=== PATIENT | female | born 1950 | race Caucasian/White ===

== ENCOUNTER → 2017-11-27 | Outpatient (CLI) | payer MEDICARE, OTHER ==
[~2017-11-27] MED LIST: ALLOPURINOL; AMLO5TAB2 PO; ASPI-587 PO; AZTH250C PO; B COMPLEX; BESYLATE PO; ENAL20TA PO; GLMP4T PO; GLUC-174 PO; HCT25T PO; IBP200T; INSU100I16 SQ; INSU100V5 SQ; LEVO500T2 PO; METF-380 PO; METO-354 PO; MULT1TAB63 PO; NAPR500T4 PO; OMEP-10 PO; OMG1KC PO; OSTEOBIFLEX; PANT20TA2 PO; SIMV20TA3 PO; TRAM-42 PO; TRM50T PO; enalapril PO
[2017-11-27 09:19] LABS: BASOPHILS # (AUTO) 0.1 10^3/uL (0.0-0.1); BASOPHILS % (AUTO) 1 % (0-10); EOSINOPHILS # (AUTO) 0.2 10^3/uL (0.0-0.3); EOSINOPHILS % (AUTO) 2 % (0-10); HEMATOCRIT 38 % (35-52); HEMOGLOBIN 12.5 G/DL (11.5-16.0); LYMPHOCYTES # (AUTO) 1.9 X 10^3 (1.0-4.0); LYMPHOCYTES % (AUTO) 29 % (12-44); MEAN CORPUSCULAR HEMOGLOBIN 31 PG (25-34); MEAN CORPUSCULAR HGB CONC 33 G/DL (32-36); MEAN CORPUSCULAR VOLUME 93 FL (80-99); MEAN PLATELET VOLUME 10.2 FL (7.4-10.4); MONOCYTES # (AUTO) 0.4 X 10^3 (0.0-1.0); MONOCYTES % (AUTO) 6 % (0-12); NEUTROPHILS # (AUTO) 3.9 X 10^3 (1.8-7.8); NEUTROPHILS % (AUTO) 61 % (42-75); PLATELET COUNT 182 10^3/uL (130-400); RED BLOOD COUNT 4.09 10^6/uL (4.35-5.85); RED CELL DISTRIBUTION WIDTH 12.8 % (10.0-14.5); WHITE BLOOD COUNT 6.3 10^3/uL (4.3-11.0)
[2017-11-27 09:37] LABS: ALANINE AMINOTRANSFERASE 43 U/L (0-55); ALBUMIN 4.2 GM/DL (3.2-4.5); ALKALINE PHOSPHATASE 56 U/L (40-136); BILIRUBIN,TOTAL 0.4 MG/DL (0.1-1.0); BUN/CREATININE RATIO 20; CALCIUM 9.9 MG/DL (8.5-10.1); CARBON DIOXIDE 23 MMOL/L (21-32); CHLORIDE 105 MMOL/L (98-107); CHOLESTEROL 137 MG/DL (< 200); CREATININE SERUM 0.89 MG/DL (0.60-1.30); GFR ESTIMATED > 60; GLUCOSE 126 MG/DL (70-105); HDL CHOLESTEROL 51 MG/DL (40-60); POTASSIUM 4.1 MMOL/L (3.6-5.0); SODIUM 141 MMOL/L (135-145); TOTAL PROTEIN 7.9 GM/DL (6.4-8.2); TRIGLYCERIDES 172 MG/DL (<150); VLDL CHOLESTEROL 34 MG/DL (5-40)
== END ==
LOC: LAB 09:03
PROVIDERS: ATTEND Nurse Practitioner Family
DX: I10 Essential (primary) hypertension (principal); E10.9 Type 1 diabetes mellitus without complications; R53.83 Other fatigue
CPT/HCPCS: 36415; 80053; 80061; 83036; 85025

== ENCOUNTER → 2019-06-14 | Outpatient (CLI) | payer MEDICARE, OTHER ==
[~2019-06-14] MED LIST changes: +NAPR-915 PO; -NAPR500T4 PO
[2019-06-14 12:55] LABS: BASOPHILS # (AUTO) 0.1 10^3/uL (0.0-0.1); BASOPHILS % (AUTO) 1 % (0-10); EOSINOPHILS # (AUTO) 0.1 10^3/uL (0.0-0.3); EOSINOPHILS % (AUTO) 1 % (0-10); HEMATOCRIT 40 % (35-52); HEMOGLOBIN 13.2 G/DL (11.5-16.0); LYMPHOCYTES # (AUTO) 1.8 X 10^3 (1.0-4.0); LYMPHOCYTES % (AUTO) 18 % (12-44); MEAN CORPUSCULAR HEMOGLOBIN 30 PG (25-34); MEAN CORPUSCULAR HGB CONC 33 G/DL (32-36); MEAN CORPUSCULAR VOLUME 91 FL (80-99); MONOCYTES # (AUTO) 0.5 X 10^3 (0.0-1.0); MONOCYTES % (AUTO) 4 % (0-12); NEUTROPHILS # (AUTO) 7.8 X 10^3 (1.8-7.8); NEUTROPHILS % (AUTO) 77 % (42-75); PLATELET COUNT 248 10^3/uL (130-400); RED CELL DISTRIBUTION WIDTH 13.4 % (10.0-14.5); WHITE BLOOD COUNT 10.1 10^3/uL (4.3-11.0)
== END ==
LOC: LAB 12:34
PROVIDERS: ATTEND Family Medicine
DX: E03.8 Other specified hypothyroidism (principal); I10 Essential (primary) hypertension; E78.2 Mixed hyperlipidemia; E11.649 Type 2 diabetes mellitus with hypoglycemia without coma
CPT/HCPCS: 36415; 80061; 83036; 84443; 85025

== ENCOUNTER → 2019-06-16 | Outpatient (CLI) | payer MEDICARE, OTHER ==
--- NOTE | 2019-06-16 17:43 | Diagnostic Imaging Report ---
INDICATION: Right thyroidectomy in 2011. FINDINGS: Right thyroid is surgically absent. Left thyroid measures 4.2 x 1.7 x 2.1 cm. Isthmus is 4 mm in thickness. Several hypoechoic nodules in the left lobe are identified, all 4-5 mm in size. No dominant mass is seen. IMPRESSION: 1. Status post right thyroidectomy. There are several tiny benign subcentimeter nodules in the left lobe. No dominant mass is detected. Dictated by: Dictated on workstation # [id number]
== END ==
LOC: RAD 13:58
PROVIDERS: ATTEND Family Medicine
DX: E89.0 Postprocedural hypothyroidism (principal)
CPT/HCPCS: 76536

== ENCOUNTER → 2019-06-25 | Outpatient (CLI) | payer MEDICARE, OTHER ==
[2019-06-25 10:07] LABS: ALBUMIN 4.4 GM/DL (3.2-4.5); BILIRUBIN,TOTAL 0.4 MG/DL (0.1-1.0); CALCIUM 9.7 MG/DL (8.5-10.1); CREATININE SERUM 0.99 MG/DL (0.60-1.30); POTASSIUM 4.3 MMOL/L (3.6-5.0); TOTAL PROTEIN 8.1 GM/DL (6.4-8.2)
== END ==
LOC: LAB 09:29
PROVIDERS: ATTEND Family Medicine
DX: I10 Essential (primary) hypertension (principal)
CPT/HCPCS: 36415; 80053

== ENCOUNTER → 2019-12-10 | Outpatient (CLI) | payer MEDICARE, OTHER ==
[~2019-12-10] MED LIST changes: +AMLO10TA7 PO; +ASPI81TA16 PO; +GLIM4TAB3 PO; +GLUC-200 PO; +HYDR25TA4 PO; +INSU100I29 SQ; +METF-399 PO; +MULT-985 PO; +MV-M1TAB57 PO; +PANT40TA3 PO; +POTA99TA21 PO; +SIMV20TA26 PO; +VIT1CAPS44 PO
--- NOTE | 2019-12-10 16:07 | Diagnostic Imaging Report ---
PROCEDURE: CT abdomen and pelvis without contrast. TECHNIQUE: Multiple contiguous axial images were obtained through the abdomen and pelvis without the use of intravenous contrast. Auto Exposure Controls were utilized during the CT exam to meet ALARA standards for radiation dose reduction. INDICATION: Abdominal pain. COMPARISON: Study compared with CT abdomen and pelvis 09/16/2015. FINDINGS: There is no bowel obstruction. No ascites, abscess, hematoma, or acute fluid collection. No abdominal wall defect or hernia. Unopacified liver, bile ducts, spleen and pancreas nonfocal and nonacute. Circumscribed well-defined left adrenal mass measured 4.4 x 3.1 cm unchanged from prior with its density and stability remaining consistent with benign adenoma. The right adrenal is stable and negative. The urinary tract is unobstructed, nonfocal and nonacute. There is no appendicitis or diverticulitis. No ascites, abscess, hematoma, fluid collection, pneumatosis or free gas. No focal inflammatory process. No acute-appearing abnormality. IMPRESSION: Stable chronic benign-appearing left adrenal nodule. No obstructive features, inflammatory process, or acute abnormalities identified. Dictated by: Dictated on workstation # [id number]
== END ==
LOC: RAD 14:58
PROVIDERS: ATTEND Nurse Practitioner Family
DX: E27.9 Disorder of adrenal gland, unspecified (principal)
CPT/HCPCS: 74176

== ENCOUNTER 2019-12-14 10:07 | Outpatient (CLI) | payer MEDICARE, OTHER ==
[~2019-12-14] VITALS: Ht 172.7 cm; Wt 122.7 kg
[~2019-12-14 10:07] MED LIST changes: -AMLO10TA7 PO; -ASPI81TA16 PO; -GLIM4TAB3 PO; -GLUC-200 PO; -HYDR25TA4 PO; -INSU100I29 SQ; -METF-399 PO; -MULT-985 PO; -MV-M1TAB57 PO; -PANT40TA3 PO; -POTA99TA21 PO; -SIMV20TA26 PO; -VIT1CAPS44 PO
[2019-12-14] MEDS ORDERED: PANT40TA3 PO (10:43)
[2019-12-14] MEDS ORDERED: OMG1KC PO (10:43)
[2019-12-14] MEDS ORDERED: AMLO10TA7 PO (10:43)
[2019-12-14] MEDS ORDERED: POTA99TA21 PO (10:43)
[2019-12-14] MEDS ORDERED: GLIM4TAB3 PO (10:43)
[2019-12-14] MEDS ORDERED: SIMV20TA26 PO (10:43)
[2019-12-14] MEDS ORDERED: METF-399 PO (10:43)
[2019-12-14] MEDS ORDERED: INSU100I29 SQ (10:43)
[2019-12-14] MEDS ORDERED: ASPI81TA16 PO (10:43)
[2019-12-14] MEDS ORDERED: GLUC-200 PO (10:43)
[2019-12-14] MEDS ORDERED: ENAL20TA PO (10:43)
[2019-12-14] MEDS ORDERED: VIT1CAPS44 PO (10:43)
[2019-12-14] MEDS ORDERED: HYDR25TA4 PO (10:43)
[2019-12-14] MEDS ORDERED: MULT-985 PO (10:43)
[2019-12-14] MEDS ORDERED: MV-M1TAB57 PO (10:43)
== END 2019-12-14 10:46 | disposition home or self-care (01) ==
LOC: PREOP 10:07
PROVIDERS: ATTEND Surgery
DX: Z01.818 Encounter for other preprocedural examination (principal)

== ENCOUNTER → 2021-02-16 | Outpatient (CLI) | payer MEDICARE, OTHER ==
[~2021-02-16] MED LIST changes: +AMLO-251 PO; +ASPI81TA16 PO; +ENAL20TA16 PO; +GLIM4TAB5 PO; +GLUC-200 PO; +HYDR25TA4 PO; +INSU100I29 SQ; +METF-399 PO; +MULT-985 PO; +MV-M1TAB57 PO; +PANT40TA52 PO; +POTA99TA21 PO; +SIMV20TA26 PO; +VIT1CAPS44 PO
--- NOTE | 2021-02-16 15:49 | Diagnostic Imaging Report ---
INDICATION: Routine screening. COMPARISON is made with prior mammograms dated 02/03/2015 and 06/23/2007. 2-D and 3-D bilateral screening mammography was performed with CAD. Both breasts are primarily involutional. There are benign calcifications in both breasts. No spiculated mass or malignant appearing microcalcifications are seen. Axillae are unremarkable. IMPRESSION: BI-RADS Category 2 No mammographic features suspicious for malignancy are identified. ACR BI-RADS Category 2: Benign findings. Result letter will be mailed to the patient. Note: At least 10% of breast cancer is not imaged by mammography. Dictated by: Dictated on workstation # [id number]
== END ==
LOC: RAD 14:42
PROVIDERS: ATTEND Nurse Practitioner Family
DX: Z12.31 Encounter for screening mammogram for malignant neoplasm of breast (principal)
CPT/HCPCS: 77063; 77067

== ENCOUNTER → 2022-02-18 | Outpatient (CLI) | payer MEDICARE ==
[~2022-02-18] MED LIST changes: +MULT-1054 PO; -MULT-985 PO; -POTA99TA21 PO; +POTA99TA26 PO
--- NOTE | 2022-02-18 12:54 | Diagnostic Imaging Report ---
INDICATION: Routine screening. COMPARISON: 02/16/2021 and 02/03/2015. TECHNIQUE: 2D and 3D bilateral screening mammography was performed with CAD. FINDINGS: Both breasts are primarily involutional. No dominant mass or malignant-appearing microcalcifications are seen. There are benign calcifications bilaterally. The axillae are unremarkable. IMPRESSION: No mammographic features suspicious for malignancy are identified. ACR BI-RADS Category 2: Benign findings. Result letter will be mailed to the patient. Note: At least 10% of breast cancer is not imaged by mammography. Dictated by: Dictated on workstation # [id number]
== END ==
LOC: RAD 10:30
PROVIDERS: ATTEND Nurse Practitioner Family
DX: Z12.31 Encounter for screening mammogram for malignant neoplasm of breast (principal)
CPT/HCPCS: 77063; 77067

== ENCOUNTER 2022-06-26 10:23 | Outpatient (RCR) | payer MEDICARE | END 2022-06-27 01:00 | disposition home or self-care (01) | PROVIDERS: ATTEND Family Medicine | DX: M25.511 Pain in right shoulder (principal); M25.512 Pain in left shoulder ==

== ENCOUNTER 2022-07-25 10:25 | Outpatient (RCR) | payer MEDICARE | END 2022-07-25 11:11 | disposition home or self-care (01) | PROVIDERS: ATTEND Family Medicine | DX: M25.511 Pain in right shoulder (principal); M25.512 Pain in left shoulder ==

== ENCOUNTER → 2023-02-27 | Outpatient (CLI) | payer MEDICARE ==
[~2023-02-27] MED LIST changes: -INSU100I29 SQ; +INSU100I30 SQ
--- NOTE | 2023-02-27 13:15 | Diagnostic Imaging Report ---
Indication: Routine screening. Comparison is made with prior mammogram 02/18/2022 and 02/16/2021. 2-D and 3-D bilateral screening mammography was performed with CAD. CAD is utilized. The current study was also evaluated with a Computer Aided Detection (CAD) system. Scattered fibroglandular densities are identified bilaterally. There are benign calcifications in both breasts. No mass or malignant-appearing microcalcifications are identified. Axillae are unremarkable. IMPRESSION: BI-RADS Category 2 No mammographic features suspicious for malignancy are identified. ACR BI-RADS Category 2: Benign findings. Result letter will be mailed to the patient. Note: At least 10% of breast cancer is not imaged by mammography. Dictated by: Dictated on workstation # [id number]
== END ==
LOC: RAD 09:57
PROVIDERS: ATTEND Family Medicine
DX: Z12.31 Encounter for screening mammogram for malignant neoplasm of breast (principal)
CPT/HCPCS: 77063; 77067

== ENCOUNTER → 2023-03-04 | Outpatient (CLI) | payer MEDICARE ==
[~2023-03-04] MED LIST changes: +CHOL10007 PO; +ENAL-70 PO; -ENAL20TA16 PO; +GLUC-219 PO; +LEVO75CA5 PO; +METO50TA7 PO; +ROSU10TA28 PO; +UBID100C7 PO
--- NOTE | 2023-03-04 17:46 | Diagnostic Imaging Report ---
INDICATION: Osteopenia COMPARISON: None available FINDINGS: AP Spine L1-L4: [BMD (g/cm2): 1.268] [T-Score: 0.6] [Z-Score: 1.1] [BMD Previous: NA] [BMD % Change: NA] LT Hip Neck: [BMD (g/cm2): 0.716] [T-Score: -2.3] [Z-Score: -1.2] LT Hip Total: [BMD (g/cm2):0.843] [T-Score:-1.3] [Z-Score: -0.4] [BMD Previous: NA] [BMD % Change: NA] RT Hip Neck: [BMD (g/cm2):0.719] [T-Score:-2.3] [Z-Score:-1.2] RT Hip Total: [BMD (g/cm2):0.854] [T-score:-1.2] [Z-Score:-0.3] [BMD Previous:NA] [BMD % Change:NA] *Indicates significant change from prior examination based on 95% confidence level. World Health Organization criteria for BMD interpretation classify patients as Normal (T-score at or above -1.0), Osteopenic (T-score between -1.0 and -2.5) or Osteoporotic (T-score at or below -2.5). LIMITATIONS AND MODIFICATION: None. FRACTURE RISK (FRAX SCORE): The ten year probability of (%): Major Osteoporotic Fracture: [13.1] Hip Fracture: [3.5] IMPRESSION: 1. Osteopenia (Low bone mass). 2. Baseline examination. 3. See below National Osteoporosis Foundation guidelines on when to potentially initiate pharmacologic therapy. Based on the National Osteoporosis Foundation Guidelines, pharmacologic treatment should be initiated in any of the following, unless clinical conditions suggest otherwise: * Any patient with prior fragility fracture of the hip or vertebrae. A spine fracture indicates 5X risk for subsequent spine fracture and 2X risk for subsequent hip fracture. * Osteoporosis (T-score <-2.5). * Postmenopausal women and men age 50 and older with low bone mass/osteopenia (T-score between -1.0 and -2.5) by DXA and 10-year major osteoporotic fracture greater than 20% or a 10-year probability of hip fracture greater than 3%. These fracture risks are supplied above in the FRAX score, if applicable. * Clinician judgement and/or patient preferences may indicate treatment for people with 10-year fracture probabilities above or below these levels. Dictated by: Dictated on workstation # [id number]
== END ==
LOC: RAD 13:32
PROVIDERS: ATTEND Family Medicine
DX: Z12.31 Encounter for screening mammogram for malignant neoplasm of breast (principal); M85.80 Other specified disorders of bone density and structure, unspecified site; Z78.0 Asymptomatic menopausal state
CPT/HCPCS: 77080

== ENCOUNTER 2023-03-05 09:28 | Outpatient (CLI) | payer MEDICARE ==
[~2023-03-05] VITALS: Ht 172.7 cm; Wt 125.5 kg
[~2023-03-05 09:28] MED LIST changes: -CHOL10007 PO; -GLUC-219 PO; -LEVO75CA5 PO; -METO50TA7 PO; -ROSU10TA28 PO; -UBID100C7 PO
[2023-03-05] MEDS ORDERED: CHOL10007 PO (10:35)
[2023-03-05] MEDS ORDERED: GLUC-219 PO (10:35)
[2023-03-05] MEDS ORDERED: UBID100C7 PO (10:35)
[2023-03-05] MEDS ORDERED: LEVO75CA5 PO (10:35)
[2023-03-05] MEDS ORDERED: METO50TA7 PO (10:35)
[2023-03-05] MEDS ORDERED: ROSU10TA28 PO (10:35)
== END 2023-03-05 11:02 | disposition home or self-care (01) ==
LOC: PREOP 09:28
PROVIDERS: ATTEND Otolaryngology Otolaryngology/Facial Plastic Surgery
DX: Z01.818 Encounter for other preprocedural examination (principal)

== ENCOUNTER 2023-03-07 05:54 | Day surgery (SDC) | payer MEDICARE ==
[2023-03-07] VITALS (8 sets, daily range): BP systolic 140–166; BP diastolic 51–85
[~2023-03-07] VITALS: Ht 172.7 cm; Wt 125.5 kg
[~2023-03-07 05:54] MED LIST changes: +CHOL10007 PO; +GLUC-219 PO; +LEVO75CA5 PO; +METO50TA7 PO; +ROSU10TA28 PO; +UBID100C7 PO
[2023-03-07] MEDS: LACTATED RINGERS 1,000 ML IV PRN ×2 (06:27→08:23)
--- NOTE | 2023-03-07 06:49 | Progress Note-Post Operative ---
Post-Operative Progess Note Surgeon (s)/Blacksmith Assistant (s) Surgeon BETSY GARCIA MD Blacksmith Assistant n/a Pre-Operative Diagnosis Right Tonsil Cyst Post-Operative Diagnosis same Post-Op Procedure Note Date of Procedure: March 07, 2023 Name of Procedure Performed: Excision of Right Tonsil Cyst Description & Findings Description and Findings: n/a Anesthesia Type get Estimated Blood Loss minimal Packing none. Specimen(s) collected/removed Right Tonsil Cyst to patholgoy BETSY GARCIA MD March 07, 2023 06:49
--- NOTE | 2023-03-07 06:49 | Progress Note-Pre Operative ---
Pre-Operative Progress Note Date of Available H&P: March 07, 2023 Date H&P Reviewed: March 07, 2023 Time H&P Reviewed: 06:30 History & Physical: H&P Reviewed, Patient Examed, No changes noted Changes from last HP none Pre-Operative Diagnosis: Right Tonsil Cyst BETSY GARCIA MD March 07, 2023 06:49
[2023-03-07 06:55] LABS: BASOPHILS # (AUTO) 0.1 10^3/uL (0.0-0.1); BASOPHILS % (AUTO) 1 % (0-10); EOSINOPHILS # (AUTO) 0.1 10^3/uL (0.0-0.3); EOSINOPHILS % (AUTO) 1 % (0-10); HEMATOCRIT 37 % (35-52); LYMPHOCYTES # (AUTO) 1.7 10^3/uL (1.0-4.0); LYMPHOCYTES % (AUTO) 20 % (12-44); MEAN CORPUSCULAR HEMOGLOBIN 29 pg (25-34); MEAN CORPUSCULAR HGB CONC 33 g/dL (32-36); MEAN CORPUSCULAR VOLUME 88 fL (80-99); MONOCYTES # (AUTO) 0.5 10^3/uL (0.0-1.0); MONOCYTES % (AUTO) 6 % (0-12); NEUTROPHILS % (AUTO) 72 % (42-75); PLATELET COUNT 190 10^3/uL (130-400); WHITE BLOOD COUNT 8.4 10^3/uL (4.3-11.0)
[2023-03-07] MEDS ORDERED: APAP 325 MG/10.15 ML LIQ (TYLENOL) UDC PO PRN (07:00)
[2023-03-07] MEDS ORDERED: NS IV 1000 ML 1,000 ML IV SCH (07:00)
[2023-03-07] MEDS ORDERED: LIDOCAINE 2% VISCOUS 15 ML UDC PO PRN (07:00)
[2023-03-07 07:08] LABS: POTASSIUM 3.5 MMOL/L (3.6-5.0)
[2023-03-07 07:09] LABS: CALCIUM 9.2 MG/DL (8.5-10.1)
[2023-03-07 07:14] LABS: CREATININE SERUM 0.94 MG/DL (0.60-1.30)
[2023-03-07] MEDS ORDERED: fentaNYL INJ 100 MCG/2 ML AMP ONE (07:15)
[2023-03-07] MEDS ORDERED: proPOfol 200 MG/20 ML (DIPRIVAN) VIAL IV ONE (07:15)
[2023-03-07] MEDS ORDERED: LIDOCAINE PF 2% 5 ML (XYLOCAINE) VIAL ONE (07:15)
[2023-03-07] MEDS ORDERED: LIDOCAINE/EPI 1%-1:100,000 (XYLOCAINE) 20ML ONE (07:23)
[2023-03-07] MEDS ORDERED: ROCURONIUM 50 MG/5 ML (ZEMURON) VIAL IV ONE (08:06)
[2023-03-07] MEDS ORDERED: SUCCINYLCHOLINE INJ 20 MG/1 ML 10 ML VIAL ONE (08:07)
[2023-03-07] MEDS ORDERED: NEOSTIGMINE (BLOXIVERZ ) 1 MG/1ML 10 ML VIAL ONE (08:08)
[2023-03-07] MEDS ORDERED: GLYCOPYRROLATE 0.2 MG/ML (ROBINUL) 2 ML VIAL ONE (08:08)
[2023-03-07] MEDS ORDERED: SEVOFLURANE (ULTANE) 15 ML INHAL SOLN ONE (08:11)
[2023-03-07] MEDS ORDERED: ONDANSETRON 4 MG/2 ML (SDV) Z0FRAN ONE (08:20)
--- NOTE | 2023-03-07 09:21 | Anesthesia-General Post-Op ---
General Patient Condition Mental Status/LOC: Same as Preop Cardiovascular: Satisfactory Nausea/Vomiting: Absent Respiratory: Satisfactory Pain: Controlled Complications: Absent Post Op Complications Complications None Follow Up Care/Instructions Patient Instructions None needed. Anesthesia/Patient Condition Patient Condition Patient is doing well, no complaints, stable vital signs, no apparent adverse anesthesia problems. No complications reported per nursing. THU ALEX CRNA March 07, 2023 09:21
== END 2023-03-07 10:16 | disposition home or self-care (01) ==
LOC: SDC 05:54
PROVIDERS: ATTEND Otolaryngology Otolaryngology/Facial Plastic Surgery
DX: J35.8 Other chronic diseases of tonsils and adenoids (principal); F45.8 Other somatoform disorders; E66.01 Morbid (severe) obesity due to excess calories; Z68.41 Body mass index [BMI] 40.0-44.9, adult; Z87.891 Personal history of nicotine dependence
CPT/HCPCS: 36415; 80048; 82947; 85025; 87081